=== PATIENT | male | born 1965 | race Caucasian/White ===

== ENCOUNTER → 2017-11-26 | Outpatient (CLI) | payer SELFPAY | LOC: M OUTALCOH 08:05 | DX: F10.20 Alcohol dependence, uncomplicated (principal) ==

== ENCOUNTER 2017-12-04 16:25 | Outpatient (RCR) | payer SELFPAY | END 2017-12-11 | LOC: M OUTALCOH 16:25 | DX: F10.20 Alcohol dependence, uncomplicated (principal) ==